=== PATIENT | female | born 1940 ===

== ENCOUNTER 2020-06-06 08:15 | Inpatient (IN) | payer OTHER ==
[~2020-06-06] VITALS: Ht 160 cm; Wt 73.0 kg
[2020-06-06] MEDS ORDERED: SYNTHROID137 MCG PO (12:02)
[2020-06-06] MEDS ORDERED: ATACAND16 MG PO (12:02)
[2020-06-08] MEDS ORDERED: CENTRUM SILVER1 EAC2 (08:36)
[2020-06-08] MEDS ORDERED: ROSUVASTATIN CAL5 MG (08:41)
[2020-06-08] MEDS ORDERED: ACETAMINOPHEN500 M1 (08:41)
[2020-06-08] MEDS ORDERED: VITAMIN C1000 MG (08:41)
== END 2020-06-11 10:47 | disposition home or self-care (01) | DRG 741 ==
LOC: O/R 06-08 06:30 → SURH 06-08 08:15 → OB/GYN 06-08 11:24
PROVIDERS: ADMIT Specialist; ATTEND Specialist
PROC: 0UT20ZZ Resection of Bilateral Ovaries, Open Approach (ICD-10-PCS; 2020-06-08)
PROC: 0UT70ZZ Resection of Bilateral Fallopian Tubes, Open Approach (ICD-10-PCS; 2020-06-08)
PROC: 07BC0ZZ Excision of Pelvis Lymphatic, Open Approach (ICD-10-PCS; 2020-06-08)
PROC: 0UT90ZZ Resection of Uterus, Open Approach (ICD-10-PCS; principal; 2020-06-08 08:45)
DX: C54.1 Malignant neoplasm of endometrium (principal); N83.291 Other ovarian cyst, right side; N94.89 Other specified conditions associated with female genital organs and menstrual cycle; D36.0 Benign neoplasm of lymph nodes; D28.2 Benign neoplasm of uterine tubes and ligaments; N83.292 Other ovarian cyst, left side; N83.8 Other noninflammatory disorders of ovary, fallopian tube and broad ligament